=== PATIENT | male | born 1955 | race American Indian/Alaskan Native ===

== ENCOUNTER 2017-07-27 17:05 | Emergency (ER) | payer BC ==
[2017-07-27 17:05] VITALS: BMI 31.9
[2017-07-27 17:14] VITALS: TEMP 97.8
[2017-07-27 18:09] LABS: BASO % 0.6 % (0.0-2.0); EOS # 0.1 K/uL (0.0-0.7); EOS % 1.7 % (0.0-4.0); HEMOGLOBIN 14.3 g/dL (12.0-18.0); LYMPH # 3.5 K/uL (1.0-4.3); LYMPH % 46.9 % (20.0-40.0); MEAN CELL VOLUME 91.8 fL (80.0-94.0); MEAN CORPUSCULAR HEMOGLOBIN 31.5 pg (27.0-31.0); MEAN CORPUSCULAR HGB CONC 34.3 g/dL (33.0-37.0); MONO # 0.7 K/uL (0.0-0.8); MONO % 9.1 % (0.0-10.0); NEUT # 3.1 K/uL (1.8-7.0); NEUT % 41.7 % (50.0-75.0); NRBC % 0.1 % (0.0-2.0); RBC 4.53 Mil/uL (4.40-5.90); RED CELL DISTRIBUTION WIDTH 13.7 % (11.5-14.5); WHITE BLOOD COUNT 7.5 K/uL (4.8-10.8)
--- NOTE | 2017-07-27 18:10 | C.PDOC ---
History Of Present Illness Contrary to triage, 62 y/o male with PMhx of diabetes, HTN, and Acosta's Palsy presents to the ER complaining of numbness and tingling in the right upper and lower extremities which has been present for the past 4 days. Patient reports that he had 3 episodes with each episode lasting 1 minute and 30 seconds.Patient states that he saw his PMD, yesterday for his symptoms and Dr. Acosta believed it was due to nerve impingement.However, patient had another episode today.Patient denies having weakness, headache, visual changes, and chest pain. Contrary to triage patient denies chest pain Time Seen by Provider: 07/27/17 17:37 Chief Complaint (Nursing): Chest Pain History Per: Patient History/Exam Limitations: no limitations Onset/Duration Of Symptoms: Days Current Symptoms Are (Timing): Still Present Severity: Moderate Past Medical History Reviewed: Historical Data, Nursing Documentation, Vital Signs Vital Signs: Last Vital Signs Temp 97.8 F 07/27/17 19:43 Pulse 89 07/27/17 19:43 Resp 20 07/27/17 19:43 BP 161/85 H 07/27/17 19:43 Pulse Ox 99 07/27/17 21:33 - Medical History PMH: HTN Surgical History: No Surg Hx Family History: States: No Known Family Hx - Social History Hx Tobacco Use: Yes Hx Alcohol Use: No Hx Substance Use: No - Immunization History Hx Tetanus Toxoid Vaccination: No Review Of Systems Except As Marked, All Systems Reviewed And Found Negative. Eyes: Negative for: Vision Change Cardiovascular: Negative for: Chest Pain Neurological: Positive for: Numbness (numbness in right upper and lower extremities). Negative for: Weakness, Headache Physical Exam - Physical Exam Appears: Non-toxic, No Acute Distress Skin: Normal Color, Warm Head: Atraumatic, Normacephalic, Other (no facial droop) Eye(s): bilateral: Normal Inspection Nose: Normal Oral Mucosa: Moist Neck: Supple Chest: Symmetrical Cardiovascular: Rhythm Regular Respiratory: Normal Breath Sounds, No Accessory Muscle Use, No Rales, No Rhonchi , No Wheezing Gastrointestinal/Abdominal: Normal Exam, Bowel Sounds, Soft, No Tenderness Back: Normal Inspection Extremity: Normal ROM Neurological/Psych: Oriented x3, Normal Speech, Normal Cranial Nerves, Normal Motor (5/5 x 4 ), Normal Sensation (sensation intact in right upper and lower extremities) ED Course And Treatment - Laboratory Results Result Diagrams: 07/27/17 18:06 07/27/17 18:06 ECG: Interpreted By Me, Viewed By Me ECG Rhythm: Sinus Rhythm ECG Interpretation: Normal Interpretation Of ECG: NSR with normal intervals, normal axis, no ST or T-wave abnormalities Rate From EC O2 Sat by Pulse Oximetry: 99 (RA) Pulse Ox Interpretation: Normal - Radiology CXR: Interpreted by Me, Viewed By Me CXR Interpretation: Yes: No Acute Disease - CT Scan/US Head CT Other Rad Studies (CT/US): Read By Radiologist CT/US Interpretation: PROCEDURE: CT HEAD WITHOUT CONTRAST. HISTORY: AMS. COMPARISON: None available. TECHNIQUE: Axial computed tomography images were obtained through the head/brain without intravenous contrast. Radiation dose: Total exam DLP = 965.47 mGy-cm. This CT exam was performed using one or more of the following dose reduction techniques: Automated exposure control, adjustment of the mA and/or kV according to patient size, and/or use of iterative reconstruction technique. FINDINGS: HEMORRHAGE: No intracranial hemorrhage. BRAIN: No mass effect or edema. Intracranial atherosclerosis. Mild scattered nonspecific white matter changes. Please note that MRI with diffusion imaging is more sensitive in the detection of acute ischemic event. VENTRICLES: No hydrocephalus. CALVARIUM: Unremarkable. PARANASAL SINUSES: Unremarkable as visualized. No significant inflammatory changes. MASTOID AIR CELLS: Unremarkable as visualized. No inflammatory changes. OTHER FINDINGS: Partial opacification of bilateral external auditory canals, likely cerumen. IMPRESSION: No acute intracranial pathology identified. Medical Decision Making Medical Decision Making: Plan: --Labs --UA --CT-Head --CXR Progress: Patient has been informed that he has paresthesia and numbness. Patient refuses to be admitted to the hospital. He has been informed that the staff is not possible for any outcome secondary to his refusal to be admitted to the hospital. Disposition Counseled Patient/Family Regarding: Studies Performed, Diagnosis, Need For Followup - Disposition Referrals: Timbo Acosta MD [Staff Provider] - Disposition: HOME/ ROUTINE Disposition Time: 19:31 Condition: STABLE Additional Instructions: follow up with your doctor as soon as possible. call to make an appointment take medications as prescribed return to ER if symptoms worsens or progress you have been advised to stay in hospital and have refused you understand your symptoms may worsen and potentially lead to irreversible fatal outcomes you state understanding and do not hold myself or staff responsible for these potential outcome you are welcome to return to ER at anytime. Instructions: Paresthesias (DC), Hand Numbness Forms: [facility] (Maltese), General Discharge Instructions - Clinical Impression Clinical Impression: Paresthesia, Numbness - Scribe Statement The provider has reviewed the documentation as recorded by the Marce Jesus Provider Attestation: All medical record entries made by the Marce were at my direction and personally dictated by me. I have reviewed the chart and agree that the record accurately reflects my personal performance of the history, physical exam, medical decision making, and the department course for this patient. I have also personally directed, reviewed, and agree with the discharge instructions and disposition.
[2017-07-27 18:22] LABS: ALB/GLOB RATIO 1.2 (1.0-2.1); ALBUMIN 4.4 g/dL (3.5-5.0); ALT/SGPT 39 U/L (21-72); AST/SGOT 25 U/L (17-59); BLOOD UREA NITROGEN 15 mg/dL (9-20); CALCIUM 9.7 mg/dl (8.6-10.4); GFR AFRICAN-AMERICAN > 60; GFR NON-AFRICAN AMERICAN > 60
--- NOTE | 2017-07-27 18:28 | CT ---
PROCEDURE: CT HEAD WITHOUT CONTRAST. HISTORY: AMS COMPARISON: None available. TECHNIQUE: Axial computed tomography images were obtained through the head/brain without intravenous contrast. Radiation dose: Total exam DLP = 965.47 mGy-cm. This CT exam was performed using one or more of the following dose reduction techniques: Automated exposure control, adjustment of the mA and/or kV according to patient size, and/or use of iterative reconstruction technique. FINDINGS: HEMORRHAGE: No intracranial hemorrhage. BRAIN: No mass effect or edema. Intracranial atherosclerosis. Mild scattered nonspecific white matter changes. Please note that MRI with diffusion imaging is more sensitive in the detection of acute ischemic event. VENTRICLES: No hydrocephalus. CALVARIUM: Unremarkable. PARANASAL SINUSES: Unremarkable as visualized. No significant inflammatory changes. MASTOID AIR CELLS: Unremarkable as visualized. No inflammatory changes. OTHER FINDINGS: Partial opacification of bilateral external auditory canals, likely cerumen. IMPRESSION: No acute intracranial pathology identified.
[2017-07-27 18:56] LABS: SQUAMOUS EPITHIAL < 1 /hpf (0-5); URINE BILIRUBIN NEGATIVE (NEGATIVE); URINE BLOOD NEGATIVE (NEGATIVE); URINE CLARITY Clear (Clear); URINE COLOR Colorless (YELLOW); URINE GLUCOSE (UA) NORMAL (Normal); URINE LEUKOCYTE ESTERASE NEG Leu/uL (Negative); URINE PROTEIN NEGATIVE (NEGATIVE); URINE UROBILINOGEN NORMAL mg/dL (0.2-1.0)
[2017-07-27 19:44] VITALS: BP 161/85; PULSE 89; RESP 20
[2017-07-27 21:24] VITALS: O2SAT 99
--- NOTE | 2017-07-28 08:19 | RAD ---
PROCEDURE: CHEST RADIOGRAPH, 1 VIEW HISTORY: AMS COMPARISON: None available. FINDINGS: LUNGS: Clear. PLEURA: No pneumothorax or pleural fluid seen. CARDIOVASCULAR: Normal. OSSEOUS STRUCTURES: Mild degenerative changes. VISUALIZED UPPER ABDOMEN: Normal. OTHER FINDINGS: None. IMPRESSION: No active disease.
--- NOTE | 2017-07-29 15:55 | CARD ---
APPROVED REPORT EKG Measurement Heart [id number] <Conclusion> Normal sinus rhythm Normal ECG
== END 2017-07-27 19:44 | disposition home or self-care (01) ==
LOC: C.ER 17:05
DX: R20.0 Anesthesia of skin (principal); R20.2 Paresthesia of skin; E11.9 Type 2 diabetes mellitus without complications; I10 Essential (primary) hypertension; Z72.0 Tobacco use